=== PATIENT | female | born 1985 | race American Indian/Alaskan Native ===

== ENCOUNTER 2016-07-22 10:54 | Emergency (ER) | payer MEDICAID, OTHER ==
[2016-07-22 11:18] VITALS: BP 136/81
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
[2016-07-22] MEDS: TORADOL IM ONE (12:09)
[2016-07-22] MEDS: VALIUM PO ONE (12:09)
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
== END 2016-07-22 14:59 | disposition home or self-care (01) ==
LOC: ED 10:54
DX: S29.012A Strain of muscle and tendon of back wall of thorax, initial encounter (principal); S16.1XXA Strain of muscle, fascia and tendon at neck level, initial encounter; V49.9XXA Car occupant (driver) (passenger) injured in unspecified traffic accident, initial encounter; Y93.9 Activity, unspecified; Y99.9 Unspecified external cause status; Y92.410 Unspecified street and highway as the place of occurrence of the external cause
CPT/HCPCS: 72072; 72125; 96372; 99283; J1885

== ENCOUNTER 2016-08-22 16:40 | Emergency (ER) | payer SELFPAY ==
[2016-08-22 18:27] VITALS: BP 123/87
[2016-08-22 19:02] LABS: Basophils % (Auto) 0.4 % (0.0-1.8); Eosinophils % (Auto) 1.5 % (0.0-4.3); Hematocrit 34.6 % (30.3-42.9); Hemoglobin 11.4 gm/dl (10.1-14.3); Mean Corpuscular HGB Conc 33 % (30-34); Mean Corpuscular Hemoglobin 27 pg (28-32); Mean Corpuscular Volume 83 fl (79-97); Platelet Count 270 K/mm3 (140-440); Red Blood Count 4.15 M/mm3 (3.65-5.03); Red Cell Distribution Width 13.8 % (13.2-15.2); White Blood Count 5.4 K/mm3 (4.5-11.0)
--- NOTE | 2016-08-22 19:54 | Ultrasound Report ---
FINAL REPORT EXAM: US OB \T\lt; = 14 WEEKS FETUS HISTORY: vaginal bleeding COMPARISONS: None. FINDINGS: Transabdominal grayscale and color Doppler ultrasound evaluation of the pelvis In the anechoic cystic structure is present within the fundal aspect of the endometrium with mean sac diameter of approximately 5 millimeters corresponding to estimated gestational age of 5 weeks 2 days. However, there is no definite embryo or yolk sac identified. The uterus is otherwise unremarkable measures 9.8 x 4.8 x 7.1 cm. The ovaries demonstrate normal size and echotexture. No significant free fluid in the pelvis. IMPRESSION: The diagnosis of intrauterine cannot be made on the basis of this exam as no embryo or yolk sac are definitely visualized. Small 5 millimeter cystic structure within the endometrium may represent a gestational sac. Clinical and sonographic follow-up are recommended.
--- NOTE | 2016-08-22 19:57 | Ultrasound Report ---
FINAL REPORT EXAM: US OB TRANSVAGINAL HISTORY: vaginal bleeding FINDINGS: Transvaginal grayscale and color Doppler ultrasound evaluation of the pelvis In the anechoic cystic structure is present within the fundal aspect of the endometrium with mean sac diameter of approximately 5 millimeters corresponding to estimated gestational age of 5 weeks 2 days. However, there is no definite embryo or yolk sac identified. The uterus is otherwise unremarkable measures 9.8 x 4.8 x 7.1 cm. The ovaries demonstrate normal size and echotexture and measure 2.7 x 1.7 x 1.6 cm on the right and 2.2 x 1.8 x 1.9 cm on the left. No significant free fluid in the pelvis. IMPRESSION: The diagnosis of intrauterine cannot be made on the basis of this exam as no embryo or yolk sac are definitely visualized. Small 5 millimeter cystic structure within the endometrium may represent a gestational sac. Clinical and sonographic follow-up are recommended.
[2016-08-22 20:46] LABS: Bilirubin,Urine NEG (Negative); Blood,Urine NEG (Negative); Ketones,Urine NEG (Negative); Leukocyte Esterase,Urine NEG (Negative); Mucus,Urine FEW /HPF; Nitrite,Urine NEG (Negative); Protein,Urine <15 mg/dL mg/dL (Negative)
== END 2016-08-22 22:45 | disposition left against medical advice (07) ==
LOC: ED 16:40
DX: O20.9 Hemorrhage in early pregnancy, unspecified (principal); Z3A.01 Less than 8 weeks gestation of pregnancy; Z53.21 Procedure and treatment not carried out due to patient leaving prior to being seen by health care provider
CPT/HCPCS: 36415; 76801; 76817; 81001; 84702; 85025; 86850; 86900; 86901

== ENCOUNTER 2016-08-23 06:46 | Emergency (ER) | payer SELFPAY ==
[2016-08-23 16:25] VITALS: BP 115/76
--- NOTE | 2016-08-23 16:41 | Emergency Department Report ---
HPI - General Chief Complaint: Vaginal Bleeding Time Seen by Provider: 08/23/16 16:07 - HPI HPI: This is a 30-year-old Afro-[place] female who presents to the emergency department, driving herself in to be seen, with complaint of one week of intermittent vaginal bleeding and some abdominal cramping. The patient says that one week ago she had a large amount of vaginal bleeding that stopped a few hours later. She had no further problems until , 3 days ago, when it started again. Since that time it is continued but slowed up. His associated with some abdominal cramping. She denies any fever, nausea, vomiting, vaginal discharge, dysuria. She is not taken anything for symptoms prior to presentation. After the first episode of bleeding, she was told that it is possible she could be . For this reason she took a home test that was positive. With this she would be with 3 live children and one previous . She had vaginal delivery 3. 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 No recent travel or sick contacts at home. ED Past Medical Hx - Past Medical History Previous Medical History?: No Additional medical history: Vaginal delivery x 3 - Surgical History Past Surgical History?: No - Social History Smoking Status: Never Smoker Substance Use Type: None - Medications Home Medications: Home Medications Medication Instructions Recorded Confirmed Last Taken Type Naproxen [Naprosyn] 500 mg PO BID #30 tablet 07/22/16 Unknown Rx methOCARBAMOL [Robaxin TAB] 500 mg PO BID #20 tab 07/22/16 Unknown Rx ED Review of Systems ROS: Stated complaint: ABD PAIN/VAGINAL BLEEDING Other details as noted in HPI Comment: All other systems reviewed and negative Constitutional: denies: chills, fever Eyes: denies: eye pain, eye discharge, vision change ENT: denies: ear pain, throat pain Respiratory: denies: cough, shortness of breath, wheezing Cardiovascular: denies: chest pain, palpitations Gastrointestinal: abdominal pain (cramping). denies: nausea Genitourinary: other (vaginal bleeding). denies: urgency, dysuria, discharge Musculoskeletal: denies: joint swelling, arthralgia Skin: denies: rash, lesions Neurological: denies: headache, weakness, paresthesias Physical Exam - Physical Exam Vital Signs: Vital Signs 08/23/16 08/23/16 07:40 16:24 Temperature 97.8 F Pulse Rate 80 83 Respiratory 18 Rate Blood Pressure 121/77 Blood Pressure 115/76 [Left] O2 Sat by Pulse 100 100 Oximetry Physical Exam: GENERAL: The patient is well-developed well-nourished. HEENT: Normocephalic. Atraumatic. Extraocular motions are intact. Patient has moist mucous membranes. Pupils equal reactive to light bilaterally. NECK: Supple. Trachea is midline. CHEST/LUNGS: Clear to auscultation. There is no respiratory distress noted. HEART/CARDIOVASCULAR: Regular. There is no tachycardia. There is no gallop rub or murmur. ABDOMEN: Abdomen is soft, nontender. Patient has normal bowel sounds. There is no abdominal distention. SKIN: Skin is warm and dry. NEURO: The patient is awake, alert, and oriented. The patient is cooperative. The patient has no focal neurologic deficits. The patient has normal speech. MUSCULOSKELETAL: There is no tenderness or deformity. There is no limitation range of motion. There is no evidence of acute injury. ED Course Vital Signs 08/23/16 08/23/16 07:40 16:24 Temperature 97.8 F Pulse Rate 80 83 Respiratory 18 Rate Blood Pressure 121/77 Blood Pressure 115/76 [Left] O2 Sat by Pulse 100 100 Oximetry ED Medical Decision Making - Medical Decision Making This is a 30-year-old female presents to the emergency department with complaint of a few different days over the past week where she had some vaginal bleeding and abdominal cramping. At one point the patient had a positive home test. The patient was here yesterday and had some labs and imaging I was unable to stay for the results and eloped. I went back and looked at the results and the patient had a beta hCG of 25 and an ultrasound that showed some type of cystic structure in the uterus but no pole or yolk sac and it was unable to identify a viable at that time. Patient returned today and a repeat beta hCG was ordered to see if it is on its way up or on its way down to look for possible early and viability versus miscarriage. However after having the labs drawn but before the results came back, the patient says she was unable to stay any further and once again has left the emergency department. The patient did sign out AGAINST MEDICAL ADVICE and was totaled the risks of possible miscarriage, further vaginal bleeding, significant anemia among others. She knows the risks and still decided to sign out AMA. - Differential Diagnosis pertinency, miscarriage, ectopic, threatened , UTI Critical Care Time: No Critical care attestation.: If time is entered above; I have spent that time in minutes in the direct care of this critically ill patient, excluding procedure time. ED Disposition Clinical Impression: Vaginal bleeding, Threatened miscarriage Disposition: LEFT AGAINST MEDICAL ADVICE Is pt being admited?: No Condition: Stable Referrals: PRIMARY CARE,MD [Primary Care Provider] - 3-5 Days Forms: AMA Form Time of Disposition: 17:38
[2016-08-23 17:46] LABS: Basophils % (Auto) 0.5 % (0.0-1.8); Eosinophils % (Auto) 2.2 % (0.0-4.3); Hematocrit 36.2 % (30.3-42.9); Hemoglobin 11.7 gm/dl (10.1-14.3); Mean Corpuscular HGB Conc 32 % (30-34); Mean Corpuscular Hemoglobin 27 pg (28-32); Mean Corpuscular Volume 85 fl (79-97); Platelet Count 264 K/mm3 (140-440); Red Blood Count 4.27 M/mm3 (3.65-5.03); Red Cell Distribution Width 13.7 % (13.2-15.2)
--- NOTE | 2016-08-24 11:02 | ED Elopement Review ---
ED Pt Elopement review - Results review Lab results: Laboratory Tests 08/23/16 08/23/16 08/23/16 16:25 16:25 17:33 WBC 5.0 RBC 4.27 Hgb 11.7 Hct 36.2 MCV 85 MCH 27 L MCHC 32 RDW 13.7 Plt Count 264 Lymph % (Auto) 41.5 H [place] % (Auto) 7.2 Eos % (Auto) 2.2 Baso % (Auto) 0.5 Lymph # 2.1 [place] # 0.4 Eos # 0.1 Baso # 0.0 Seg Neutrophils % 48.6 Seg Neutrophils # 2.4 HCG, Quant 23.49 H Blood Type O POSITIVE Ord Rhogam Gestat Weeks Rh pos - Call Back decision Pt Call Back Decision: No action required
== END 2016-08-23 17:48 | disposition left against medical advice (07) ==
LOC: ED 06:46
DX: O20.0 Threatened abortion (principal); Z3A.00 Weeks of gestation of pregnancy not specified
CPT/HCPCS: 36415; 84702; 85025; 86900; 86901; 99283

== ENCOUNTER 2017-03-30 08:55 | Emergency (ER) | payer SELFPAY | END 2017-03-30 09:10 | disposition left against medical advice (07) | LOC: ED 08:55 | DX: R10.9 Unspecified abdominal pain (principal); M54.9 Dorsalgia, unspecified; Z53.21 Procedure and treatment not carried out due to patient leaving prior to being seen by health care provider ==

== ENCOUNTER 2017-06-15 08:59 | Emergency (ER) | payer SELFPAY | END 2017-06-15 10:45 | disposition left against medical advice (07) | LOC: ED 08:59 | DX: R10.9 Unspecified abdominal pain (principal); Z53.21 Procedure and treatment not carried out due to patient leaving prior to being seen by health care provider ==

== ENCOUNTER 2017-06-28 16:02 | Emergency (ER) | payer MEDICAID ==
[2017-06-28] MEDS ORDERED: TYLENOL PO ONE (16:21)
--- NOTE | 2017-06-28 16:23 | Emergency Department Report ---
- General Chief Complaint: Upper Respiratory Infection Stated Complaint: FLU SX Source: patient Mode of arrival: Ambulatory Limitations: No Limitations - Related Data Previous Rx's Medication Instructions Recorded Last Taken Type Naproxen [Naprosyn] 500 mg PO BID #30 tablet 07/22/16 Unknown Rx methOCARBAMOL [Robaxin TAB] 500 mg PO BID #20 tab 07/22/16 Unknown Rx Allergies Allergy/AdvReac Type Severity Reaction Status Date / Time No Known Allergies Allergy Unverified 12/05/15 11:41 ED Review of Systems ROS: Stated complaint: FLU SX Other details as noted in HPI ED Past Medical Hx - Past Medical History Previous Medical History?: Yes Additional medical history: Vaginal delivery x 3 - Surgical History Past Surgical History?: No - Social History Smoking Status: Never Smoker Substance Use Type: Alcohol, Non Opiate Pain - Medications Home Medications: Home Medications Medication Instructions Recorded Confirmed Last Taken Type Naproxen [Naprosyn] 500 mg PO BID #30 tablet 07/22/16 Unknown Rx methOCARBAMOL [Robaxin TAB] 500 mg PO BID #20 tab 07/22/16 Unknown Rx ED Physical Exam - General Limitations: No Limitations ED Course Vital Signs 06/28/17 16:14 Temperature 99.9 F H Pulse Rate 132 H Respiratory 18 Rate Blood Pressure 131/84 O2 Sat by Pulse 97 Oximetry Critical care attestation.: If time is entered above; I have spent that time in minutes in the direct care of this critically ill patient, excluding procedure time. ED Disposition Condition: Stable
[2017-06-28 17:06] LABS: HCG Qualitative,Urine Negative (Negative)
[2017-06-28 17:14] LABS: Bilirubin,Urine NEG (Negative); Blood,Urine NEG (Negative); Color,Urine Yellow (Yellow); Mucus,Urine 2+ /HPF; Nitrite,Urine NEG (Negative)
[2017-06-28 17:42] LABS: Basophils % (Auto) 0.6 % (0.0-1.8); Eosinophils % (Auto) 0.2 % (0.0-4.3); Hematocrit 42.7 % (30.3-42.9); Hemoglobin 13.9 gm/dl (10.1-14.3); Lymphocytes # (Auto) 0.4 K/mm3 (1.2-5.4); Lymphocytes % (Auto) 14.7 % (13.4-35.0); Mean Corpuscular HGB Conc 32 % (30-34); Mean Corpuscular Hemoglobin 28 pg (28-32); Mean Corpuscular Volume 87 fl (79-97); Monocytes # (Auto) 0.4 K/mm3 (0.0-0.8); Monocytes % (Auto) 15.1 % (0.0-7.3); Platelet Count 241 K/mm3 (140-440); Red Blood Count 4.91 M/mm3 (3.65-5.03); Red Cell Distribution Width 13.5 % (13.2-15.2)
[2017-06-28 18:09] LABS: BUN/Creatinine Ratio 8; Blood Urea Nitrogen 6 mg/dL (7-17); Calcium 9.2 mg/dL (8.4-10.2); Hemolysis Index 7
--- NOTE | 2017-06-28 22:01 | Emergency Department Report ---
Minor Respiratory - HPI Chief Complaint: Upper Respiratory Infection Stated Complaint: FLU SX Time Seen by Provider: 06/28/17 22:00 Duration: 2 Days Pain Location: Throat, Other (body aches, generalized) Severity: moderate Minor Respiratory: Yes Rhinorrhea, Yes Sore Throat, Yes Able to Tolerate Fluids , Yes Cough, Yes Sick Contacts, Yes Fever, No Ear Pain, No Hemoptysis, No Chest Pain, No Shortness of Breath Other History: This is a 31 y.o. female that presents with body aches, sore throat, and headache for 2 days. Reports having a few episodes of nausea w/o vomiting. Her appetite is decreased and feel like something ran over her. She is taking theraflu and chlorseptic spray with minimal improvement of symptoms. Denies chest pain, SOB, ans diarrhea. ED Review of Systems ROS: Stated complaint: FLU SX Other details as noted in HPI Constitutional: chills, fever, malaise. denies: diaphoresis, weakness ENT: throat pain, congestion. denies: ear pain, dental pain, hearing loss, epistaxis Respiratory: cough. denies: shortness of breath, wheezing Cardiovascular: denies: chest pain, palpitations Gastrointestinal: nausea. denies: abdominal pain, vomiting, diarrhea Musculoskeletal: myalgia (generalized body aches). denies: back pain, joint swelling, arthralgia Neurological: headache. denies: weakness, paresthesias ED Past Medical Hx - Past Medical History Previous Medical History?: Yes Additional medical history: Vaginal delivery x 3 - Surgical History Past Surgical History?: No - Social History Smoking Status: Never Smoker Substance Use Type: Alcohol, Non Opiate Pain - Medications Home Medications: Home Medications Medication Instructions Recorded Confirmed Last Taken Type Naproxen [Naprosyn] 500 mg PO BID #30 tablet 07/22/16 Unknown Rx methOCARBAMOL [Robaxin TAB] 500 mg PO BID #20 tab 07/22/16 Unknown Rx Benzonatate 200 mg PO TID PRN #30 capsule 06/28/17 Unknown Rx Cetirizine HCl/Pseudoephedrine 1 each PO BID 7 Days #14 tab.er.12h 06/28/17 Unknown Rx [Zyrtec-D Tablet] Fluticasone [Flonase] 1 spray NS QDAY #1 bottle 06/28/17 Unknown Rx Minor Respiratory Exam - Exam General: Vital signs noted. No distress. Alert and acting appropriately. HEENT: Yes Pharyngeal Erythema, Yes Moist Mucous Membranes, Yes Rhinorrhea, Yes Frontal Tenderness, No Pharyngeal Exudates, No Conjuctival Injection, No Maxillary Tenderness Ear: Neither TM Bulge, Neither TM Erythema, Neither EAC Pain, Neither EAC Discharge Neck: Yes Supple, No Adenopathy Lungs: Yes Good Air Exchange, Yes Cough, No Wheezes, No Ronchi, No Stridor, No Labored Respirations, No Retractions, No Use of Accessory Muscles, No Other Abnormal Lung Sounds Heart: Yes Regular, No Murmur Abdomen: Yes Normal Bowel Sounds, No Tenderness, No Peritoneal Signs Skin: No Rash, No Edema Neurologic: Alert and oriented, no deficits. Musculoskeletal: Unremarkable. ED Course Vital Signs 06/28/17 06/28/17 16:14 16:26 Temperature 99.9 F H Pulse Rate 132 H Respiratory 18 20 Rate Blood Pressure 131/84 O2 Sat by Pulse 97 Oximetry ED Medical Decision Making - Lab Data Result diagrams: 06/28/17 17:06 06/28/17 17:06 - Radiology Data Radiology results: image reviewed This is a 31 y.o. female presents with fever, body aches, sore throat, and headache for 2 days. Patient is stable and was examined by me. Obtained CBC, BMP, UA, & HCG. WBC's 2.9. I didn't test for influenza because there are no test kits available. No acute signs of distress noted. Given tylenol 1,000 mg po once in ER. Discussed plan to treat outpatient for influenza. Continue NSAID' s. Start flonase, benzonatate and zyrtec. She is out of 48 hour window for tamiflu. Patient agreed with ED plan of care. No further questions noted. Discharged home stable. Follow up with primary care provider in 24-48 hours. Critical care attestation.: If time is entered above; I have spent that time in minutes in the direct care of this critically ill patient, excluding procedure time. ED Disposition Clinical Impression: Influenza, Viral syndrome Disposition: -01 TO HOME OR SELFCARE Is pt being admited?: No Does the pt Need Aspirin: No Condition: Stable Instructions: Influenza (ED), Viral Syndrome (ED), Cold Symptoms (ED) Additional Instructions: Increase fluid intake. Wash hands frequently. Rest. Follow up with Primary Care Provider if symptoms don't resolve. Return to ER if fever, SOB, wheezing, and Nausea or Vomiting. Prescriptions: Benzonatate 200 mg PO TID PRN #30 capsule PRN Reason: Cough Cetirizine HCl/Pseudoephedrine [Zyrtec-D Tablet] 1 each PO BID 7 Days #14 tab.er.12h Fluticasone [Flonase] 1 spray NS QDAY #1 bottle Referrals: [facility] [Outside] - 3-5 Days [facility] [Outside] - 3-5 Days [facility] [Outside] - 3-5 Days Time of Disposition: 22:54 Print Language: LITHUANIAN
[2017-06-28 23:08] VITALS: BP 117/84
== END 2017-06-28 23:07 | disposition home or self-care (01) ==
LOC: ED 16:02
DX: J11.1 Influenza due to unidentified influenza virus with other respiratory manifestations (principal); B34.9 Viral infection, unspecified
CPT/HCPCS: 36415; 80048; 81001; 81025; 82550; 85025; 93005; 93010; 99283

== ENCOUNTER 2017-07-09 11:28 | Emergency (ER) | payer MEDICAID ==
[2017-07-09 11:53] VITALS: BP 122/78
--- NOTE | 2017-07-09 12:50 | Emergency Department Report ---
Eye Injury/Foreign Body - HPI Severity: Moderate Eye Symptoms: Eye Pain: No, Blurred Vision: Yes, Eye Redness: Yes, Grinding/ Hammering Metal: No, Used Eye Protection: No, Contact Lens Use: No, Recalls Injury: Yes, Photophobia: No Other History: H and was at work and was transporting a bottle of bleach when that Came off and splashed bleach up to her face. Patient feels a small now gotten to the left eye. Patient was immediately taken to eyewash station and flushed for approximately 15 minutes. Patient was sent for evaluation. ED Review of Systems ROS: Stated complaint: EYE PAIN Other details as noted in HPI Comment: All other systems reviewed and negative ED Past Medical Hx - Past Medical History Previous Medical History?: No Additional medical history: Vaginal delivery x 3 - Surgical History Past Surgical History?: No - Social History Smoking Status: Never Smoker Substance Use Type: None - Medications Home Medications: Home Medications Medication Instructions Recorded Confirmed Last Taken Type Naproxen [Naprosyn] 500 mg PO BID #30 tablet 07/22/16 Unknown Rx methOCARBAMOL [Robaxin TAB] 500 mg PO BID #20 tab 07/22/16 Unknown Rx Benzonatate 200 mg PO TID PRN #30 capsule 06/28/17 Unknown Rx Cetirizine HCl/Pseudoephedrine 1 each PO BID 7 Days #14 tab.er.12h 06/28/17 Unknown Rx [Zyrtec-D Tablet] Fluticasone [Flonase] 1 spray NS QDAY #1 bottle 06/28/17 Unknown Rx Eye Injury Exam - Exam General: Vital signs noted. No distress. Alert and acting appropriately. Lung exam: Lungs are clear to auscultation bilaterally Cardiovascular exam: S1-S2 no murmurs gallops or ru Abdomen: Soft nontender eye exam: There is no corneal irritation or injection currently in the bilateral eyes. Patient's extraocular movements are intact. There is no obvious corneal abrasion - Visual Acuity Bilateral Vision Acuity Degree: 20/25 Eye Exam: Neither Injection, Neither Chemosis, Neither Abnormal Pupil, Neither EOMI, Neither Eye Foreign Body, Neither Lid Foreign Body, Neither Mucous Discharge, Neither Purulent Discharge, Neither Corneal Edema ED Course Vital Signs 07/09/17 11:50 Temperature 98.6 F Pulse Rate 88 Respiratory 16 Rate Blood Pressure 122/78 ED Medical Decision Making - Medical Decision Making Patient has a stress sensation that she has irritation to the left eye. No obvious injuries seen. Patient restarted on Cortisporin symptomatic relief and infection prevention Critical care attestation.: If time is entered above; I have spent that time in minutes in the direct care of this critically ill patient, excluding procedure time. ED Disposition Clinical Impression: Chemical conjunctivitis of left eye Disposition: DC-01 TO HOME OR SELFCARE Is pt being admited?: No Does the pt Need Aspirin: No Condition: Fair Additional Instructions: Please use the drops given twice a day for the next 3 days Referrals: PRIMARY CARE, [Primary Care Provider] - 3-5 Days
[2017-07-09] MEDS ORDERED: CORTISPORIN OU SCH (22:00)
== END 2017-07-09 13:06 | disposition home or self-care (01) ==
LOC: ED 11:28
DX: H10.9 Unspecified conjunctivitis (principal)
CPT/HCPCS: 99282

== ENCOUNTER 2018-01-30 13:53 | Emergency (ER) | payer MEDICAID ==
[2018-01-30 14:22] VITALS: BP 131/81
[2018-01-30] MEDS ORDERED: NACL 0.9% 1000 ML 1,000 ML IV ONE (14:49)
[2018-01-30] MEDS ORDERED: TORADOL IV ONE (14:49)
--- NOTE | 2018-01-30 14:57 | Emergency Department Report ---
ED Abdominal Pain HPI - General Chief Complaint: Back Pain/Injury Stated Complaint: STOMACH PAIN Time Seen by Provider: 01/30/18 14:42 Source: patient Mode of arrival: Ambulatory Limitations: No Limitations - History of Present Illness Initial Comments: 32 year old female status post fat transfer surgery on November 26. Patient received liposuction on abdomen and back. Patient reports has been having intermittent pain to these areas since surgery. States she still has areas on abdomen that are hard, and in these areas of hardness the skin is numb. Patient states she was told by physician that it would take 3-6 months to heal and for swelling to resolve. Patient reports another episode of pain yesterday radiating around to the right flank. Patient denies fever, vomiting, urinary frequency, dysuria. Patient reports has been taking Percocet for pain. MD Complaint: abdominal pain, flank pain -: Gradual, month(s) (2) Location: diffuse Radiation: R flank Severity: moderate Consistency: intermittent Improves With: nothing Worsens With: nothing Context: recent surgery/procedure Associated Symptoms: denies: nausea, vomiting, fever, dysuria - Related Data Previous Rx's Medication Instructions Recorded Last Taken Type Naproxen [Naprosyn] 500 mg PO BID #30 tablet 07/22/16 Unknown Rx methOCARBAMOL [Robaxin TAB] 500 mg PO BID #20 tab 07/22/16 Unknown Rx Benzonatate 200 mg PO TID PRN #30 capsule 06/28/17 Unknown Rx Cetirizine HCl/Pseudoephedrine 1 each PO BID 7 Days #14 tab.er.12h 06/28/17 Unknown Rx [Zyrtec-D Tablet] Fluticasone [Flonase] 1 spray NS QDAY #1 bottle 06/28/17 Unknown Rx Naproxen [Naprosyn] 500 mg PO BID #20 tablet 01/30/18 Unknown Rx Allergies Allergy/AdvReac Type Severity Reaction Status Date / Time No Known Allergies Allergy Verified 01/30/18 14:17 ED Review of Systems ROS: Stated complaint: STOMACH PAIN Other details as noted in HPI Comment: All other systems reviewed and negative Constitutional: denies: chills, fever Gastrointestinal: abdominal pain. denies: nausea, vomiting Genitourinary: denies: dysuria, frequency, hematuria ED Past Medical Hx - Past Medical History Previous Medical History?: Yes Additional medical history: Vaginal delivery x 3 - Surgical History Past Surgical History?: No - Social History Smoking Status: Never Smoker Substance Use Type: None - Medications Home Medications: Home Medications Medication Instructions Recorded Confirmed Last Taken Type Naproxen [Naprosyn] 500 mg PO BID #30 tablet 07/22/16 Unknown Rx methOCARBAMOL [Robaxin TAB] 500 mg PO BID #20 tab 07/22/16 Unknown Rx Benzonatate 200 mg PO TID PRN #30 capsule 06/28/17 Unknown Rx Cetirizine HCl/Pseudoephedrine 1 each PO BID 7 Days #14 tab.er.12h 06/28/17 Unknown Rx [Zyrtec-D Tablet] Fluticasone [Flonase] 1 spray NS QDAY #1 bottle 06/28/17 Unknown Rx Naproxen [Naprosyn] 500 mg PO BID #20 tablet 01/30/18 Unknown Rx ED Physical Exam - General Limitations: No Limitations General appearance: alert, in no apparent distress - Head Head exam: Present: atraumatic, normocephalic - Eye Eye exam: Present: normal appearance - ENT ENT exam: Present: mucous membranes moist - Neck Neck exam: Present: normal inspection - Respiratory Respiratory exam: Present: normal lung sounds bilaterally. Absent: respiratory distress - Cardiovascular Cardiovascular Exam: Present: regular rate, tachycardia - GI/Abdominal GI/Abdominal exam: Present: other (abdomen appears to have some lumps in it; multiple diffuse areas are firm; nontender to palpation; no bruising noted). Absent: distended - Extremities Exam Extremities exam: Present: normal inspection - Back Exam Back exam: Present: CVA tenderness (R) - Neurological Exam Neurological exam: Present: alert, oriented X3, motor sensory deficit ( decreased sensation over some areas of abdomen) - Psychiatric Psychiatric exam: Present: normal affect, normal mood - Skin Skin exam: Present: warm, dry, intact, normal color ED Course Vital Signs 01/30/18 01/30/18 14:17 16:06 Temperature 98.7 F Pulse Rate 108 H Respiratory 16 18 Rate Blood Pressure 131/81 O2 Sat by Pulse 100 Oximetry - Reevaluation(s) Reevaluation #1: 01/30/18 17:10 Patient comfortable. Labs unremarkable. Received Toradol and IV fluids. Will discharge at this time ED Medical Decision Making - Lab Data Result diagrams: 01/30/18 15:02 01/30/18 15:02 - Medical Decision Making 32-year-old female with pain to her abdomen and flank status post liposuction 2 months ago. Labs normal. Patient comfortable and has received Toradol and IV fluids. Patient advised to follow up with surgeon in the upcoming week. - Differential Diagnosis postoperative pain, UTI, pyelonephritis Critical care attestation.: If time is entered above; I have spent that time in minutes in the direct care of this critically ill patient, excluding procedure time. ED Disposition Clinical Impression: Postoperative pain Disposition: DC-01 TO HOME OR SELFCARE Is pt being admited?: No Condition: Stable Instructions: Postop pain (ED) Prescriptions: Naproxen [Naprosyn] 500 mg PO BID #20 tablet Referrals: PRIMARY CARE, [Primary Care Provider] - 3-5 Days Time of Disposition: 17:12
[2018-01-30 14:59] LABS: HCG Qualitative,Urine Negative (Negative)
[2018-01-30 15:05] LABS: Bilirubin,Urine NEG (Negative); Blood,Urine NEG (Negative); Color,Urine Yellow (Yellow); Mucus,Urine FEW /HPF; Protein,Urine <15 mg/dL mg/dL (Negative)
[2018-01-30 15:41] LABS: Basophils % (Auto) 0.9 % (0.0-1.8); Eosinophils # (Auto) 0.1 K/mm3 (0.0-0.4); Eosinophils % (Auto) 1.4 % (0.0-4.3); Hemoglobin 12.6 gm/dl (10.1-14.3); Lymphocytes # (Auto) 2.3 K/mm3 (1.2-5.4); Lymphocytes % (Auto) 41.3 % (13.4-35.0); Mean Corpuscular HGB Conc 34 % (30-34); Mean Corpuscular Hemoglobin 30 pg (28-32); Mean Corpuscular Volume 88 fl (79-97); Monocytes # (Auto) 0.5 K/mm3 (0.0-0.8); Monocytes % (Auto) 8.3 % (0.0-7.3); Platelet Count 300 K/mm3 (140-440); Red Blood Count 4.22 M/mm3 (3.65-5.03); Red Cell Distribution Width 15.5 % (13.2-15.2)
[2018-01-30 16:57] LABS: Alanine Aminotransferase 23 units/L (7-56); Albumin 4.2 g/dL (3.9-5); BUN/Creatinine Ratio 15; Blood Urea Nitrogen 9 mg/dL (7-17); Hemolysis Index 13; Lipase 32 units/L (13-60)
[2018-01-30 17:03] LABS: Bilirubin,Direct < 0.2 mg/dL (0-0.2)
== END 2018-01-30 17:23 | disposition home or self-care (01) ==
LOC: ED 13:53
DX: G89.18 Other acute postprocedural pain (principal)
CPT/HCPCS: 36415; 80048; 80074; 81001; 81025; 83690; 85025; 96374; 99283; J1885; J7030